=== PATIENT | female | born 1945 | race Caucasian/White ===

== ENCOUNTER 2017-02-09 06:40 | Day surgery (SDC) | payer MEDICARE, OTHER ==
[2017-02-09] MEDS ORDERED: PROPOFOL 500 MG/50 ML EMU IV ONE (07:27)
[2017-02-09] MEDS ORDERED: LIDOCAINE HCL 1% MPF SOL ONE (07:27)
[2017-02-09] MEDS ORDERED: ONDANSETRON HCL 4 MG/2 ML SOL ONE (08:25)
[2017-02-09 08:46] VITALS: TEMP 98.2
[2017-02-09 09:09] VITALS: RESP 20
[2017-02-09 09:15] VITALS: BP 157/85; PULSE 79; O2SAT 97
== END 2017-02-09 09:35 | disposition home or self-care (01) | DRG 951 ==
LOC: SURG 06:40
PROVIDERS: ATTEND Internal Medicine Gastroenterology
DX: Z12.11 Encounter for screening for malignant neoplasm of colon (principal); D12.0 Benign neoplasm of cecum; Z86.010 Personal history of colon polyps; K57.30 Diverticulosis of large intestine without perforation or abscess without bleeding; K64.8 Other hemorrhoids
CPT/HCPCS: J2405; J2001; J2704